=== PATIENT | male | born 1980 | race Caucasian/White ===

== ENCOUNTER 2023-07-23 09:55 | Emergency (ER) | payer OTHER ==
[~2023-07-23] VITALS: Ht 167.6 cm; Wt 117.9 kg
[2023-07-23 10:32] VITALS: BP 168/118; TEMP 98.3; O2SAT 97
== END 2023-07-23 10:32 ==
LOC: ER 10:00
DX: Z04.1 Encounter for examination and observation following transport accident (principal); V99.XXXA Unspecified transport accident, initial encounter; Y93.89 Activity, other specified; Y92.411 Interstate highway as the place of occurrence of the external cause; Y99.8 Other external cause status